=== PATIENT | male | born 1985 | race Caucasian/White ===

== ENCOUNTER 2019-01-15 12:26 | Observation (INO) | payer MEDICARE, MEDICAID ==
[2019-01-15 13:41] LABS: ABS Monocytes 0.6 10^3/ul (0-0.8); ABS Neutrophils 9.3 10^3/ul (1.5-7.7); Eosinophil % 0.2 %; Hematocrit 45 % (42-52); Hemoglobin 15.8 g/dL (14.0-18.0); Lymphocyte % 8.8 %; Mean Corpuscular HGB Conc 35 g/dL (31-36); Mean Corpuscular Hemoglobin 33 pg (27-31); Mean Corpuscular Volume 95 fL (80-94); Mean Platelet Volume 8.6 fL (7.4-10.4); Platelet Count 164 10^3/uL (150-450); Red Blood Count 4.79 10^6 /uL (4.18-5.48); Red Cell Distribution Width 14 % (10-15); White Blood Count 10.9 10^3/uL (3.5-10.8)
[2019-01-15 14:08] LABS: ALT 14 U/L (7-52); AST 16 U/L (13-39); Albumin 4.9 g/dL (3.2-5.2); Alkaline Phosphatase 91 U/L (34-104); BUN/Creatinine Ratio 12.9 (8-20); Blood Urea Nitrogen 13 mg/dL (6-24); C Reactive Protein < 1.00 mg/L (<8.01); CO2 Carbon Dioxide 19 mmol/L (22-32); Chloride 107 mmol/L (101-111); EGFR African American 101.7 (>60); EGFR Non-African American 84.1 (>60); Globulin 2.5 g/dL (2-4); Glucose 135 mg/dL (70-100); Sodium 139 mmol/L (135-145); Total Protein 7.4 g/dL (6.4-8.9)
[2019-01-15 14:42] LABS: Anion Gap 13 mmol/L (2-11); Potassium 3.5 mmol/L (3.5-5.0)
[2019-01-15] MEDS ORDERED: NS 0.9% 1000 ML** 1,000 ML IV ONE ×2 (14:52→16:19)
[2019-01-15] MEDS ORDERED: Morphine 4 MG/ML VIAL (1 ml) 4 MG/ML VIAL IV ONE (17:06)
[2019-01-15] MEDS ORDERED: Metoclopramide IV* 5 MG/ML 2 ML VIAL IV SLOW PU ONE (17:12)
[2019-01-15] MEDS ORDERED: Ondansetron INJ* 2 MG/ML VIAL IV ONE (17:12)
[2019-01-15] MEDS ORDERED: Iohexol 300* (CONTRAST) 10 ML SDV IV ONE (17:18)
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
[2019-01-15 17:25] LABS: Lithium < 0.10 mmol/L (0.6-1.2)
[2019-01-15] MEDS ORDERED: Lorazepam PYXIS KEY PRN ×2 (18:32→19:15)
[2019-01-15] MEDS ORDERED: LORazepam INJ* 2 MG/ML 1 ML VIAL IV PUSH ONE (18:32)
[2019-01-15] MEDS ORDERED: Morphine INJ* 2 MG/ML 1 ML SYRINGE (TWO MG - NEW SYRINGE VERSION) IV PRN (19:14)
[2019-01-15] MEDS ORDERED: LORazepam INJ* 2 MG/ML 1 ML VIAL IV PUSH PRN (19:15)
[2019-01-15] MEDS ORDERED: Ondansetron INJ* 2 MG/ML VIAL IV PRN (19:20)
[2019-01-15] MEDS ORDERED: clonazePAM TAB(*) 1 MG PO PRN (19:20)
[2019-01-15] MEDS ORDERED: Acetaminophen TAB* 325 MG PO PRN (19:21)
[2019-01-15] MEDS ORDERED: Azithromycin TAB* 250 MG PO ONE (20:10)
--- NOTE | 2019-01-15 20:36 | HP ---
ADDENDUM NOW INCLUDED ON THIS REPORT CC: Dr. Gladys Atkins; Dr. Mccray; Dr. Muñiz * HISTORY AND PHYSICAL: DATE OF ADMISSION: 01/15/19 PRIMARY CARE PROVIDER: Dr. Gladys Atkins. RN ER: Dr. Mccray. CHIEF COMPLAINT: Nausea and vomiting as well as abdominal pain. HISTORY OF PRESENT ILLNESS: Mr. Mehta is a 33-year-old male with history of bipolar disorder, COPD, traumatic brain injury as well as gastroparesis as well as cyclical vomiting who presented to the hospital complaining of nausea and vomiting intermittently for the past 2 weeks. In the last couple of days, he has been doing it almost nonstop. He also complains of lower abdominal pain. His last bowel movement was today and was semiformed. He has not been febrile. He uses medical marijuana oral, which he vapes. He also uses domperidone. He had a CT of the abdomen performed in the emergency department that showed " no definite abnormality, dilated loops of bowel are noted. Study is limited due to lack of oral contrast. No other masses or fluids. No collections are definitely identified. The patient is status post cholecystectomy." PAST MEDICAL HISTORY: Bipolar disease. PAST SURGICAL HISTORY: Cholecystectomy. ALLERGIES: Include REGLAN, PENICILLIN, FLUORIDE, and artificial sweeteners. FAMILY HISTORY: Reviewed and noncontributory. SOCIAL HISTORY: The patient is on disability due to his bipolar disease. He denies any tobacco or alcohol use. He does take medical marijuana as prescribed. His healthcare proxy is his mother, Shreya Mehta; her phone number is . REVIEW OF SYSTEMS: Please see history of present illness. All the remaining 12 systems were reviewed with the patient and were, otherwise, negative. PHYSICAL EXAMINATION GENERAL: The patient is a very pleasant 33-year-old male who is in no acute distress. Alert and oriented x3. VITAL SIGNS: Blood pressure of 111/89, heart rate of 51 and regular, respiratory rate 19, oxygen saturation 100% on room air, temperature of 98.3. HEENT: Head: Atraumatic, normocephalic. Eyes: Pupils are equal and reactive to light and accommodation. Oropharynx is clear. Mucosa dry. NECK: Supple. No JVD. No bruits bilaterally. RESPIRATORY: Clear to auscultation bilaterally. CARDIOVASCULAR: Regular rate and rhythm. No murmur. ABDOMEN: Soft, minimally tender in bilateral lower quadrants with no rebound and no guarding. Bowel sounds are present in all 4 quadrants. EXTREMITIES: There is no edema. Pulses are +2 bilaterally. No clubbing or cyanosis. NEUROLOGIC EVALUATION: Speech is clear. Cranial nerves II through XII are grossly intact. Motor strength is 5/5 bilaterally. DIAGNOSTIC STUDIES/LAB DATA: Laboratory Data: White blood cell count of 10.9 , hemoglobin of 15.8, hematocrit of 45, MCV of 95, and platelets of 164. Sodium was 139, potassium 3.5, chloride 97, carbon dioxide 19, BUN 13, creatinine 1.01, anion gap was 13. Liver function tests were unremarkable and sugar of 135. The patient's lactic acid was 5.0, repeat lactic acid 4.3. C- reactive protein was below 1. Lugoff was below detectable of 0.1. CT abdomen and pelvis was quoted above in history of present illness. ASSESSMENT AND PLAN: 1. Intractable nausea and vomiting in a patient with history of cyclical vomiting syndrome. As I spoke with the patient, I am unsure if vaping marijuana can actually cause cannabinoid-induced hyperemesis syndrome, but it is possible. Nevertheless, the patient cannot use marijuana at our facility. He is going to be prescribed erythromycin 250 mg 3 times a day, which he used in 2016 when he was in the hospital and it worked for him. Treating with intravenous fluids as well as Zofran for nausea. Morphine is going to be provided for pain. The patient also stated that he responded well to Ativan in the past. I will ask Dr. Muñiz to see the patient in consultation in the morning. 2. The patient's elevated lactic acid is likely due to starvation ketosis and dehydration. The patient is not septic and his lactic acid is trending down. I will not continue rechecking it since it is not sepsis related. 3. In regards to the patient's bipolar disorder, the patient stated that he does not tolerate any other medications and he had been on lithium and taking it. It is possible that due to his vomiting, he has not been able to keep it p.o. Will continue lithium as tolerated and at home dose. He hopefully will be able to keep it down. 4. For DVT prophylaxis, the patient is going to be placed on full ambulation and he is low risk. 5. For his chronic obstructive pulmonary disease, the patient is not in exacerbation. 6. The patient's code status is full. His surrogate is his mother. TIME SPENT: Approximately 60 minutes were spent on the admission of this patient. More than half that time was spent [id number] with the patient during the interview and physical exam. ADDENDUM: MEDICATION LIST: 1. Lugoff carbonate ER 450 mg b.i.d. 2. Domperidone 10 mg t.i.d. p.r.n. 3. Zofran 4 mg every 6 hours p.r.n. 4. Clonazepam 1 mg at bedtime p.r.n. 5. Medical marijuana as instructed by the physician p.r.n. [id number]/CPS #: [id number] #: [id number] PARKER
[2019-01-15] MEDS ORDERED: Erythromycin TAB* 250 MG PO SCH (21:00)
[2019-01-15] MEDS: Lithium Carbonate ER* 450 MG TAB.ER PO SCH (22:11)
[2019-01-15] MEDS: NS 0.9% 1000 ML** 1,000 ML IV SCH (22:15)
[2019-01-16 06:07] LABS: ABS Lymphocytes 1.4 10^3/ul (1.0-4.8); ABS Monocytes 0.7 10^3/ul (0-0.8); ABS Neutrophils 5.3 10^3/ul (1.5-7.7); Eosinophil % 0.1 %; Hematocrit 39 % (42-52); Hemoglobin 13.8 g/dL (14.0-18.0); Lymphocyte % 19.3 %; Mean Corpuscular HGB Conc 35 g/dL (31-36); Mean Corpuscular Hemoglobin 33 pg (27-31); Mean Corpuscular Volume 94 fL (80-94); Mean Platelet Volume 9.1 fL (7.4-10.4); Platelet Count 134 10^3/uL (150-450); Red Blood Count 4.18 10^6 /uL (4.18-5.48); Red Cell Distribution Width 14 % (10-15); White Blood Count 7.5 10^3/uL (3.5-10.8)
[2019-01-16 06:28] LABS: BUN/Creatinine Ratio 22.5 (8-20); Calcium 8.7 mg/dL (8.6-10.3); EGFR African American 133.1 (>60); Potassium 3.4 mmol/L (3.5-5.0)
[2019-01-16] MEDS ORDERED: Erythromycin TAB* 250 MG PO SCH (09:00)
[2019-01-16] MEDS: Lithium Carbonate ER* 450 MG TAB.ER PO SCH (09:40)
[2019-01-16] MEDS: NS 0.9% 1000 ML** 1,000 ML IV SCH (10:33)
[2019-01-16] MEDS: KCL 20 MEQ/100 ML IVPREMIX* 20 MEQ/100 ML BAG IV SCH ×2 (10:33→14:28)
[2019-01-16 11:29] VITALS: BP 90/53
--- NOTE | 2019-01-16 19:27 | HP ---
HISTORY AND PHYSICAL: ADDENDUM: MEDICATION LIST: 1. Barlow carbonate ER 450 mg b.i.d. 2. Domperidone 10 mg t.i.d. p.r.n. 3. Zofran 4 mg every 6 hours p.r.n. 4. Clonazepam 1 mg at bedtime p.r.n. 5. Medical marijuana as instructed by the physician p.rrand [id number]/CPS #: [id number] PARKER
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
== END 2019-01-16 14:15 | disposition home or self-care (01) ==
LOC: ED 12:26 → MED 19:21
PROVIDERS: ADMIT Internal Medicine; ATTEND Internal Medicine
DX: R11.2 Nausea with vomiting, unspecified (principal); E86.0 Dehydration; F31.9 Bipolar disorder, unspecified; K91.5 Postcholecystectomy syndrome; Z79.899 Other long term (current) drug therapy; Z88.0 Allergy status to penicillin; Z87.820 Personal history of traumatic brain injury; F17.210 Nicotine dependence, cigarettes, uncomplicated; E87.2 Acidosis; J44.9 Chronic obstructive pulmonary disease, unspecified
CPT/HCPCS: 36415; 74177; 80048; 80053; 80178; 83605; 83690; 85025; 86140; 96361; 96374; 96375; 96376; 99283; A9270-GY; G0378; J2270; J2405; J2765; J3480; Q9967

== ENCOUNTER 2019-03-30 16:44 | Observation (INO) | payer MEDICARE, MEDICAID ==
[2019-03-30] MEDS ORDERED: NS 0.9% 1000 ML** 1,000 ML IV ONE ×2 (17:04→18:31)
[2019-03-30] MEDS ORDERED: Haloperidol INJ IV/IM* 5 MG/ML AMP IV SLOW PU ONE ×2 (17:04→17:46)
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
[2019-03-30 18:34] LABS: ABS Lymphocytes 0.9 10^3/ul (1.0-4.8); ABS Monocytes 0.4 10^3/ul (0-0.8); Eosinophil % 0.3 %; Hematocrit 38 % (42-52); Hemoglobin 13.3 g/dL (14.0-18.0); Lymphocyte % 13.8 %; Mean Corpuscular HGB Conc 35 g/dL (31-36); Mean Corpuscular Hemoglobin 35 pg (27-31); Mean Corpuscular Volume 99 fL (80-94); Mean Platelet Volume 8.9 fL (7.4-10.4); Nucleated Red Blood Cells % 0.1; Platelet Count 117 10^3/uL (150-450); Red Blood Count 3.82 10^6 /uL (4.18-5.48); Red Cell Distribution Width 17 % (10-15); White Blood Count 6.2 10^3/uL (3.5-10.8)
[2019-03-30 18:56] LABS: Albumin/Globulin Ratio 1.7 (1-3); BUN/Creatinine Ratio 20.9 (8-20); Calcium 8.8 mg/dL (8.6-10.3); EGFR African American 122.5 (>60); EGFR Non-African American 101.2 (>60); Globulin 2.3 g/dL (2-4); Potassium 3.1 mmol/L (3.5-5.0); Total Protein 6.3 g/dL (6.4-8.9)
[2019-03-30] MEDS ORDERED: Potassium Chlor TAB* 20 MEQ TAB.ER PO ONE (19:03)
[2019-03-30] MEDS ORDERED: Ondansetron INJ* 2 MG/ML VIAL IV ONE (20:01)
[2019-03-30] MEDS ORDERED: Acetaminophen TAB* 325 MG PO PRN (21:15)
[2019-03-30] MEDS ORDERED: Morphine INJ* 2 MG/ML 1 ML SYRINGE (TWO MG - NEW SYRINGE VERSION) IV PRN (21:15)
[2019-03-30] MEDS ORDERED: Ondansetron INJ* 2 MG/ML VIAL IV PRN (21:15)
[2019-03-30] MEDS ORDERED: Magnesium Hydroxide LIQ* 30 ML UDC PO PRN (21:15)
[2019-03-30] MEDS ORDERED: Al Hydrox/Mg Hydrox/Simet LIQ* 30 ML UDC PO PRN (21:15)
[2019-03-30] MEDS ORDERED: clonazePAM TAB(*) 1 MG PO PRN (21:18)
[2019-03-30] MEDS ORDERED: KCL 20 MEQ/100 ML IVPREMIX* 20 MEQ/100 ML BAG IV ONE (21:53)
[2019-03-30] MEDS ORDERED: Scopolamine 1.5 mg* PATCH TRANSDERM SCH (22:00)
[2019-03-30] MEDS: NS 0.9% 1000 ML** 1,000 ML IV SCH (22:18)
--- NOTE | 2019-03-30 23:14 | HP ---
CC: Dr. Mccray; Dr. Atkins HISTORY AND PHYSICAL: DATE OF ADMISSION: 03/30/19 PRIMARY CARE PROVIDER: Dr. Gladys Atkins. ENVIRONMENTAL ANALYST: Dr. Mccray. CHIEF COMPLAINT: Nausea and vomiting. HISTORY OF PRESENT ILLNESS: Bebeto Mehta is a 33-year-old male with history of disability due to bipolar disorder who has history of cyclical vomiting. He presents once again complaining of vomiting and a bdominal pain. The patient stated that he threw up once yesterday and today he had been throwing up every half an hour. He received Haldol and Zofran in the emergency room with basically no result and he continues to vomit. He is going to be placed on overnight observation with the diagnosis of exac erbation of his cyclical vomiting problem. PAST MEDICAL HISTORY: 1. History of bipolar disorder. 2. COPD. 3. Traumatic brain injury. 4. History of gastroparesis with cyclical vomiting. 5. Status post cholecystectomy. MEDICATIONS: At home include: 1. Clonazepam 1 mg at bedtime p.r.n. 2. Zofran 4 mg every 6 hours p.r.n. 3. Medical marijuana as prescribed by his primary care provider. 4. [place] carbonate ER 450 mg b.i.d. 5. Domperidone 10 mg t.i.d. p.r.n. ALLERGIES: REGLAN, PENICILLIN, FLUORIDE, and ARTIFICIAL SWEETENERS. FAMILY HISTORY: Reviewed and noncontributory. SOCIAL HISTORY: The patient is on disability due to bipolar disease. He denies any tobacco, alcohol or drug use. He takes marijuana as prescribed. His healthcare proxy is his mother, Shreya Mehta; her ph one number is [phone]. His mother is actually visiting today. REVIEW OF SYSTEMS: Positive for nausea and vomiting. Positive for abdominal pain, but it is diffuse abdominal pain and it was described as spasm that caused the patient to vomit. All the remaining 12 systems were reviewed with the patient and were, otherwise, negative. PHYSICAL EXAMINATION GENERAL: The patient is a pleasant 33-year-old male who is in no acute distress. The patient is aler t and oriented x3. VITAL SIGNS: Blood pressure of 155/74, heart rate of 51 and regular, respiratory rate 17, oxygen sat uration 98% on room air, temperature of 97.9. HEENT: Head atraumatic and normocephalic. Eyes: Pupils are equal, round, and reactive to light and accommodation. Oropharynx clear. Mucosa dry. NECK: Supple. No JVD. No bruits bilaterally. RESPIRATORY: Clear to auscultation bilaterally. CARDIOVASCULAR: Regular rate and rhythm. No murmur. ABDOMEN: Soft, mildly tender diffusely with no rebound and no guarding. Bowel sounds present in all 4 quadrants. EXTREMITIES: There is no edema. Pulses are +2 bilaterally. No clubbing or cyanosis. NEUROLOGIC: On neuro evaluation, speech is clear. Cranial nerves II through XII grossly intact. Mo tor strength is 5/5 bilaterally. DIAGNOSTIC STUDIES/LAB DATA: Laboratory data shows white blood cell count of 6.2, hemoglobin of 13. 3, hematocrit of 38, MCV of 99, platelets of 117. Sodium was 141, potassium 3.1, chloride 110, carbon dioxide 23, BUN 18, creatinine 0.89. Liver funct ion tests were unremarkable. The patient's lithium level was nondetectable. The patient's EKG showed sinus bradycardia with a heart rate of 60 beats per minute with motion artif act. QT of 503 msec. ASSESSMENT AND PLAN: 1. Exacerbation of chronic cyclical vomiting. The patient is going to be placed on overnight observ ation. He is going to be given Zofran and scopolamine patch. He is going to be placed on intravenous hydration. 2. For his bipolar disease, his lithium p.o. is going to be continued. 3. For DVT prophylaxis, the patient is at low risk and ambulation is going to be encouraged. 4. For hypokalemia, that is going to be replaced further with IV potassium. 5. The patient's code status is full and his surrogate is his mother. TIME SPENT: Approximately 62 minutes were spent on the admission of this patient, more than half aneesh t time was spent [id number] with the patient during the interview and physical exam. [id number]/[facility] #: [id number]
[2019-03-31] MEDS: KCL 20 MEQ/100 ML IVPREMIX* 20 MEQ/100 ML BAG IV SCH ×2 (02:22→04:35)
[2019-03-31 05:16] LABS: ABS Lymphocytes 0.6 10^3/ul (1.0-4.8); ABS Monocytes 0.3 10^3/ul (0-0.8); ABS Neutrophils 5.1 10^3/ul (1.5-7.7); Hematocrit 38 % (42-52); Hemoglobin 13.3 g/dL (14.0-18.0); Lymphocyte % 9.6 %; Mean Corpuscular HGB Conc 35 g/dL (31-36); Mean Corpuscular Hemoglobin 35 pg (27-31); Mean Corpuscular Volume 99 fL (80-94); Mean Platelet Volume 8.9 fL (7.4-10.4); Platelet Count 117 10^3/uL (150-450); Red Blood Count 3.84 10^6 /uL (4.18-5.48); Red Cell Distribution Width 17 % (10-15)
[2019-03-31 05:32] LABS: BUN/Creatinine Ratio 20.9 (8-20); Calcium 8.9 mg/dL (8.6-10.3); EGFR African American 163.3 (>60); Potassium 4.2 mmol/L (3.5-5.0)
[2019-03-31] MEDS ORDERED: Lithium Carbonate ER* 450 MG TAB.ER PO SCH (09:00)
[2019-03-31 12:37] VITALS: BP 135/59
[2019-03-31] MEDS ORDERED: Sodium Bicarbonate (ANTACID)* 650 MG TAB PO ONE (13:38)
[2019-03-31] MEDS: NS 0.9% 1000 ML** 1,000 ML IV SCH (14:09)
--- NOTE | 2019-03-31 15:55 | DS ---
DISCHARGE SUMMARY: DATE OF ADMISSION: 03/30/19 DATE OF DISCHARGE: 03/31/19 PRIMARY DIAGNOSES: 1. Exacerbation of cyclic vomiting syndrome. 2. Hypokalemia. SECONDARY DIAGNOSES: 1. Bipolar disorder. 2. Chronic obstructive pulmonary disease. 3. Traumatic brain injury. 4. History of gastroparesis with cyclic vomiting. 5. Status post cholecystectomy. HOSPITAL COURSE: A 33-year-old male with history of disability secondary to bipolar disorder and hist ory of cyclic vomiting syndrome who follows with Dr. Mccray as an outpatient, came in to the [facility] with episodes of significant vomiting and nausea that started 2 days ago with some abdominal pain. The patient was managed supportively in the hospital with IV fluids and antiemetics and is on a melvin r liquid diet and at this time reports some improvement even though he feels exhausted. The patient reports that he has had extensive workup as an outpatient and in the past to rule out other etiology. The patient also uses marijuana which is prescribed by his physician and reports that the marijuana is the only one that helps his symptoms. Discussed with the patient that there is an association wit h marijuana and sometimes it can cause cannabis hyperemesis syndrome versus cyclic vomiting syndrome and may provide relief or exacerbate. The patient reports that he had symptoms even prior to start a nd had some relief with marijuana and also the patient wishes to home today in light of the impending snow storm tomorrow and even though the patient is not 100% better yet reports feeling significantly better. At the time of discharge, the patient will be discharged on p.o. Zofran. We will continue IV hydration until the patient is discharged. We will also discharge the patient on a scopolamine pa tch which appears to be helping. The patient was noted to be hypokalemic in the ER secondary to his nausea and vomiting and the patient's potassium was replaced and potassium at the time of discharge n oted to be stable at 4.2. The patient noted to be mildly acidotic with the bicarb of 20 from GI loss . We will replace his bicarb. As the patient's symptoms have improved and the patient wishes to go ho me, we will discharge the patient. PHYSICAL EXAMINATION: Vitals: At the time of discharge, temperature 98.3, pulse 81, respiratory rat e 16, oxygen saturation 97% on room air, blood pressure 135/59. HEENT: NCAT. Heart: S1, S2 present . Regular at the time of exam. Lungs: Clear to auscultation. Abdomen: Soft. Extremities: No ed rivera. Neuro: Alert, oriented x3. LABS AT THE TIME OF DISCHARGE: Sodium 137, potassium 4.2, chloride 108, CO2 20, BUN 14, creatinine 0 .67. MEDICATION LIST: At time of discharge: 1. Clonazepam 1 mg p.o. at bedtime p.r.n. 2. Medical marijuana one inhalation p.o. b.i.d. 3. [place] ER 450 mg p.o. b.i.d. 4. Domperidone 10 mg p.o. t.i.d. p.r.n. 5. Scopolamine patch 1 patch every 72 hours. Three patches prescribed. 6. Zofran ODT 4 mg p.o. q.6 hours p.r.n. for nausea and vomiting. DISPOSITION: Home. CONDITION: Stable. INSTRUCTIONS: The patient is to follow up with his PCP in 3 to 5 days. TIME SPENT: Total time spent on discharge equal to 40 minutes. [id number]/[facility] #: [id number]
[2019-04-02] MEDS ORDERED: Scopolamine PATCH Remove* 1 NOTE MISC PATCH OFF SCH (22:00)
== END 2019-03-31 14:58 | disposition home or self-care (01) ==
LOC: ED 16:44 → SSU 21:15
PROVIDERS: ADMIT Internal Medicine; ATTEND Internal Medicine
DX: R11.15 Cyclical vomiting syndrome unrelated to migraine (principal); E87.6 Hypokalemia; F31.9 Bipolar disorder, unspecified; J44.9 Chronic obstructive pulmonary disease, unspecified; Z87.820 Personal history of traumatic brain injury; Z90.49 Acquired absence of other specified parts of digestive tract; Z79.899 Other long term (current) drug therapy; F41.9 Anxiety disorder, unspecified; F43.10 Post-traumatic stress disorder, unspecified; F17.210 Nicotine dependence, cigarettes, uncomplicated
CPT/HCPCS: 36415; 80048; 80053; 85025; 93005; 96365; 96366; 96375; 99284; A9270-GY; G0378; J1630; J2405; J3480

== ENCOUNTER 2022-09-29 15:59 | Observation (INO) ==
[2022-09-29 16:38] LABS: INR 1.07 (0.88-1.18)
[2022-09-29] MEDS ORDERED: NS 0.9% 1000 ml BAG 1,000 ML IV ONE ×2 (16:39→18:13)
[2022-09-29] MEDS ORDERED: Droperidol 5 MG/2 ML 2 ML VIAL IV ONE ×2 (16:40→22:08)
[2022-09-29 16:41] LABS: ABS Eosinophils 0.1 10^3/uL (0.0-0.5); ABS Lymphocytes 1.6 10^3/uL (1.0-4.8); ABS Monocytes 0.8 10^3/uL (0.0-1.1); ABS Neutrophils 9.4 10^3/uL (1.5-7.6); ABS Nucleated RBC 0.01 10^3/ul; Hematocrit 44.3 % (38-53); Hemoglobin 15.3 g/dL (13.2-16.3); Lymphocyte % 13.7 %; Mean Corpuscular Hemoglobin 32.4 pg (27-33); Mean Corpuscular Hgb Conc 34.6 g/dL (31-36); Mean Corpuscular Volume 93.6 fL (80-97); Mean Platelet Volume 8.5 fL (7.5-11.2); Nucleated Red Blood Cells % 0.1 /100 WBC (0.0-0.4); Platelet Count 172 10^3/uL (150-450); Red Blood Count 4.73 10^6/uL (4.06-5.63); Red Cell Distribution Width 13.3 % (12-17)
[2022-09-29 16:54] LABS: High Sens Troponin Baseline < 3 pg/mL (<20)
[2022-09-29 17:17] LABS: Lipase 19 U/L (11.0-82.0)
[2022-09-29 17:37] LABS: ALT 25 U/L (7-52); Albumin/Globulin Ratio 2.5 (1-3); Alkaline Phosphatase 62 U/L (35-149); Blood Urea Nitrogen 29 mg/dL (6-24); Calcium 9.4 mg/dL (8.6-10.3); Chloride 103 mmol/L (101-111); Creatinine, Serum 1.44 mg/dL (0.67-1.17); Glucose 106 mg/dL (70-100); Sodium 136 mmol/L (135-145); eGFR CKD-EPI 63.8 (>60)
[2022-09-29 17:39] LABS: AST 21 U/L (13-39); Potassium 4.1 mmol/L (3.5-5.0)
[2022-09-29 17:42] LABS: Anion Gap 19 mmol/L (2-16); CO2 Carbon Dioxide 14 mmol/L (22-32)
[2022-09-29 17:45] LABS: High Sensitivity Troponin 1 Hr < 3 pg/mL (<20)
[2022-09-29 17:54] LABS: Magnesium 2.4 mg/dL (1.9-2.7)
[2022-09-29] MEDS ORDERED: Iohexol 350 (CONTRAST) 500 ML MDV IV ONE (17:57)
[2022-09-29 22:17] LABS: Blood Urea Nitrogen 22 mg/dL (6-24); CO2 Carbon Dioxide 20 mmol/L (22-32); Calcium 7.7 mg/dL (8.6-10.3); Chloride 105 mmol/L (101-111); Creatinine, Serum 0.96 mg/dL (0.67-1.17); Glucose 89 mg/dL (70-100); Sodium 135 mmol/L (135-145); eGFR CKD-EPI 103.8 (>60)
[2022-09-29 22:23] LABS: Anion Gap 10 mmol/L (2-16)
[2022-09-29] MEDS ORDERED: Lactated Ringers 1000 ml BAG 1,000 ML IV ONE (23:14)
[2022-09-29] MEDS ORDERED: Droperidol 5 MG/2 ML 2 ML VIAL IV PRN (23:21)
[2022-09-29] MEDS ORDERED: Ondansetron 4 mg VIAL 2 MG/ML 2 ml VIAL IV PRN (23:51)
[2022-09-30 05:38] LABS: ABS Lymphocytes 1.2 10^3/uL (1.0-4.8); ABS Monocytes 0.8 10^3/uL (0.0-1.1); ABS Neutrophils 10.3 10^3/uL (1.5-7.6); ABS Nucleated RBC 0.01 10^3/ul; Eosinophil % 0.1 %; Hemoglobin 14.2 g/dL (13.2-16.3); Lymphocyte % 9.8 %; Mean Corpuscular Hemoglobin 31.8 pg (27-33); Mean Corpuscular Hgb Conc 34.7 g/dL (31-36); Mean Corpuscular Volume 91.7 fL (80-97); Mean Platelet Volume 7.8 fL (7.5-11.2); Platelet Count 158 10^3/uL (150-450); Red Blood Count 4.46 10^6/uL (4.06-5.63); Red Cell Distribution Width 13.1 % (12-17); White Blood Count 12.4 10^3/uL (3.6-10.2)
[2022-09-30 06:23] LABS: Albumin 4.4 g/dL (3.2-5.2); Albumin/Globulin Ratio 2.4 (1-3); Calcium 8.5 mg/dL (8.6-10.3); Creatinine, Serum 1.03 mg/dL (0.67-1.17); Globulin 1.8 g/dL (2-4); Magnesium 2.2 mg/dL (1.9-2.7); Potassium 3.8 mmol/L (3.5-5.0); Total Protein 6.2 g/dL (6.4-8.9); eGFR CKD-EPI 95.4 (>60)
[2022-09-30] MEDS ORDERED: Lithium Carbonate ER 450mg TAB PO SCH (09:00)
[2022-09-30] MEDS ORDERED: DOMPERIDONE 10 MG PO SCH (10:30)
[2022-09-30 14:04] VITALS: BP 108/69
== END 2022-09-30 16:00 | disposition home or self-care (01) ==
LOC: EDHOLD 15:59 → ED 15:59 → SUATTDRO 23:20 → MED 09-30 03:31
PROVIDERS: ADMIT Hospitalist; ATTEND Internal Medicine